=== PATIENT | female | born 1985 | race Caucasian/White ===

== ENCOUNTER 2022-03-09 11:07 | Inpatient (IN) | payer OTHER ==
[2022-03-09 12:17] VITALS: BMI 23.0
[2022-03-09] MEDS ORDERED: ACETAMINOPHEN 325 MG TABLET (FP) PO PRN ×2 (14:42)
[2022-03-09] MEDS ORDERED: NALOXONE HCL (KLOXXADO) 8 MG SPRAY NS PRN (14:42)
[2022-03-09] MEDS ORDERED: MAGNESIUM CITRATE 300 ML BOTTLE PO PRN (14:42)
[2022-03-09] MEDS ORDERED: BISMUTH SUBSALICYLATE 524 MG/30 ML PO PRN (14:42)
[2022-03-09] MEDS ORDERED: MAG HYDROX/AL HYDROX/SIMETH 30 ML UNIT-DOSE CUP PO PRN (14:42)
[2022-03-09] MEDS ORDERED: IBUPROFEN 400 MG TABLET (FP) PO PRN (14:42)
[2022-03-09] MEDS ORDERED: LOPERAMIDE HCL 2 MG CAPSULE PO PRN (14:42)
[2022-03-09] MEDS ORDERED: IBUPROFEN 600 MG TABLET (FP) PO PRN (14:42)
[2022-03-09] MEDS ORDERED: MAGNESIUM HYDROX 2400MG/30ML ORAL SUSPENSION 30 ML CUP PO PRN (14:42)
[2022-03-09] MEDS ORDERED: ONDANSETRON *ODT* 4 MG TABLET SL PRN (14:42)
[2022-03-09] MEDS ORDERED: BENZOCAINE/MENTHOL (CHLORASEPTIC ) LOZENGE MM PRN (14:42)
[2022-03-09] MEDS ORDERED: DICYCLOMINE HCL 10 MG CAPSULE PO PRN (14:42)
[2022-03-09] MEDS ORDERED: METHOCARBAMOL 500 MG TABLET PO PRN (14:42)
[2022-03-09] MEDS ORDERED: CALAMINE 8% TOPICAL LOTION 177 ML BOTTLE TP PRN (14:47)
[2022-03-09] MEDS: hydrOXYzine PAMOATE 25 MG CAPSULE (FP) PO SCH ×2 (17:41→22:35)
[2022-03-09] MEDS: PRENATAL VITAMINS W/ FOLIC ACID TABLET (FP) PO SCH (18:30)
[2022-03-09] MEDS: MELATONIN 5 MG TABLETS PO SCH (22:35)
[2022-03-09] MEDS: THIAMINE HCL 100 MG TABLET (FP) PO SCH (22:35)
[2022-03-10] MEDS: hydrOXYzine PAMOATE 25 MG CAPSULE (FP) PO SCH ×5 (06:14→22:58)
[2022-03-10] MEDS: NICOTINE POLACRILEX 2 MG GUM BUC PRN ×4 (06:23→22:18)
[2022-03-10] MEDS ORDERED: chlordiazePOXIDE HCL 25 MG CAPSULE PO PRN (10:24)
[2022-03-10] MEDS: chlordiazePOXIDE HCL 25 MG CAPSULE PO SCH ×3 (10:34→22:15)
[2022-03-10] MEDS: methaDONE HCL 40 MG DISPERSABLE TABLET PO SCH (10:34)
[2022-03-10] MEDS: PRENATAL VITAMINS W/ FOLIC ACID TABLET (FP) PO SCH (10:35)
[2022-03-10 12:28] LABS: HEMATOCRIT 38.3 % (32.4-45.2); HEMOGLOBIN 12.4 GM/dL (10.7-15.3); MCH 26.5 pg (25.7-33.7); MCHC 32.3 g/dl (32.0-36.0); MEAN CELL VOLUME 82.3 fl (80-96); MEAN PLT VOLUME 8.2 fl (7.5-11.1); PLATELET COUNT 434 10^3/uL (134-434); RBC 4.66 M/mm3 (3.60-5.2); RDW 14.2 % (11.6-15.6); WHITE BLOOD COUNT 8.8 K/mm3 (4.0-10.0)
[2022-03-10 12:54] LABS: ALBUMIN 3.2 g/dl (3.4-5.0)
[2022-03-10 12:57] LABS: CALCIUM 9.5 mg/dL (8.5-10.1); CREATININE 0.7 mg/dL (0.55-1.3)
[2022-03-10 12:59] LABS: BILIRUBIN,TOTAL 0.4 mg/dL (0.2-1)
[2022-03-10 13:02] LABS: TOT PROT 6.6 g/dl (6.4-8.2)
[2022-03-10] MEDS: NICOTINE 10 MG CARTRIDGE (INHALER) IH PRN (19:59)
[2022-03-10] MEDS: THIAMINE HCL 100 MG TABLET (FP) PO SCH (22:16)
[2022-03-10] MEDS: MELATONIN 5 MG TABLETS PO SCH (22:16)
[2022-03-11] MEDS: chlordiazePOXIDE HCL 10 MG CAPSULE PO SCH ×5 (07:13→22:46)
[2022-03-11] MEDS: methaDONE HCL 40 MG DISPERSABLE TABLET PO SCH (07:14)
[2022-03-11] MEDS: hydrOXYzine PAMOATE 25 MG CAPSULE (FP) PO SCH ×5 (07:14→22:45)
[2022-03-11] MEDS: NICOTINE 10 MG CARTRIDGE (INHALER) IH PRN ×2 (07:17→16:43)
[2022-03-11] MEDS: NICOTINE POLACRILEX 2 MG GUM BUC PRN ×2 (10:23→17:19)
[2022-03-11] MEDS: PRENATAL VITAMINS W/ FOLIC ACID TABLET (FP) PO SCH (10:23)
[2022-03-11 11:47] LABS: HIV INTERPRETATION NEGATIVE (NEGATIVE)
[2022-03-11 17:27] VITALS: RESP 18
[2022-03-11] MEDS: MELATONIN 5 MG TABLETS PO SCH (22:44)
[2022-03-11] MEDS: THIAMINE HCL 100 MG TABLET (FP) PO SCH (22:44)
[2022-03-12] MEDS ORDERED: chlordiazePOXIDE HCL 10 MG CAPSULE PO PRN
[2022-03-12] MEDS: NICOTINE 10 MG CARTRIDGE (INHALER) IH PRN (03:56)
[2022-03-12] MEDS ORDERED: chlordiazePOXIDE HCL 10 MG CAPSULE PO SCH (05:00)
[2022-03-12] MEDS: methaDONE HCL 40 MG DISPERSABLE TABLET PO SCH (07:32)
[2022-03-12] MEDS: hydrOXYzine PAMOATE 25 MG CAPSULE (FP) PO SCH (07:33)
[2022-03-12 08:54] VITALS: BP 107/68; PULSE 65; TEMP 97.9
[2022-03-13] MEDS ORDERED: chlordiazePOXIDE HCL 10 MG CAPSULE PO ONE (05:00)
== END 2022-03-12 09:55 | disposition home or self-care (01) | DRG 773 ==
LOC: YASAS 11:07 → UNDOADMIN 15:57 → Y3N 15:57
PROVIDERS: ADMIT Allergy & Immunology; ATTEND Surgery
PROC: HZ2ZZZZ Detoxification Services for Substance Abuse Treatment (ICD-10-PCS; principal; 2022-03-09)
DX: F11.23 Opioid dependence with withdrawal (principal); F10.230 Alcohol dependence with withdrawal, uncomplicated; F15.10 Other stimulant abuse, uncomplicated; F17.210 Nicotine dependence, cigarettes, uncomplicated; F31.9 Bipolar disorder, unspecified; F60.3 Borderline personality disorder; Z20.822 Contact with and (suspected) exposure to COVID-19; Z86.19 Personal history of other infectious and parasitic diseases; Z59.00 Homelessness unspecified; Z56.0 Unemployment, unspecified
CPT/HCPCS: 36415; 80053; 81025; 85027; 86780; 87389; C9803-CS; U0003; U0005

== ENCOUNTER 2022-04-29 10:20 | Inpatient (IN) | payer OTHER ==
[2022-04-29 11:28] VITALS: BMI 23.0
[2022-04-29] MEDS ORDERED: IBUPROFEN 600 MG TABLET (FP) PO PRN (12:11)
[2022-04-29] MEDS ORDERED: NALOXONE HCL (KLOXXADO) 8 MG SPRAY NS PRN (12:11)
[2022-04-29] MEDS ORDERED: DICYCLOMINE HCL 10 MG CAPSULE PO PRN (12:11)
[2022-04-29] MEDS ORDERED: LOPERAMIDE HCL 2 MG CAPSULE PO PRN (12:11)
[2022-04-29] MEDS ORDERED: MAGNESIUM CITRATE 300 ML BOTTLE PO PRN (12:11)
[2022-04-29] MEDS ORDERED: ONDANSETRON *ODT* 4 MG TABLET SL PRN (12:11)
[2022-04-29] MEDS ORDERED: MAG HYDROX/AL HYDROX/SIMETH 30 ML UNIT-DOSE CUP PO PRN (12:11)
[2022-04-29] MEDS ORDERED: BENZOCAINE/MENTHOL (CHLORASEPTIC ) LOZENGE MM PRN (12:11)
[2022-04-29] MEDS ORDERED: MAGNESIUM HYDROX 2400MG/30ML ORAL SUSPENSION 30 ML CUP PO PRN (12:11)
[2022-04-29] MEDS ORDERED: BISMUTH SUBSALICYLATE 524 MG/30 ML PO PRN (12:11)
[2022-04-29] MEDS ORDERED: IBUPROFEN 400 MG TABLET (FP) PO PRN (12:11)
[2022-04-29] MEDS ORDERED: NICOTINE POLACRILEX 2 MG GUM BUC PRN (12:11)
[2022-04-29] MEDS ORDERED: ACETAMINOPHEN 325 MG TABLET (FP) PO PRN ×2 (12:11)
[2022-04-29] MEDS: NICOTINE 14 MG/24 HOURS TOPICAL PATCH TD SCH (13:13)
[2022-04-29] MEDS: NICOTINE 10 MG CARTRIDGE (INHALER) IH PRN ×3 (13:14→22:26)
[2022-04-29] MEDS: PRENATAL VITAMINS W/ FOLIC ACID TABLET (FP) PO SCH (13:14)
[2022-04-29] MEDS: diazePAM 5 MG TABLET PO PRN (13:22)
[2022-04-29 15:24] LABS: HEMATOCRIT 34.5 % (32.4-45.2); HEMOGLOBIN 11.4 GM/dL (10.7-15.3); MCH 26.7 pg (25.7-33.7); MCHC 32.9 g/dl (32.0-36.0); MEAN PLT VOLUME 7.9 fl (7.5-11.1); PLATELET COUNT 446 10^3/uL (134-434); RBC 4.27 M/mm3 (3.60-5.2); RDW 14.7 % (11.6-15.6); WHITE BLOOD COUNT 8.5 K/mm3 (4.0-10.0)
[2022-04-29] MEDS: FLUoxetine HCL 10 MG CAPSULE PO SCH (15:33)
[2022-04-29 15:52] LABS: CALCIUM 9.1 mg/dL (8.5-10.1)
[2022-04-29 15:53] LABS: ALBUMIN 3.5 g/dl (3.4-5.0); BLOOD UREA NITROGEN 15.1 mg/dL (7-18)
[2022-04-29 15:56] LABS: BILIRUBIN,TOTAL 0.3 mg/dL (0.2-1); CREATININE 0.7 mg/dL (0.55-1.3)
[2022-04-29 15:58] LABS: TOT PROT 7.1 g/dl (6.4-8.2)
[2022-04-29 16:25] LABS: HIV INTERPRETATION NEGATIVE (NEGATIVE)
[2022-04-29] MEDS: diazePAM 5 MG TABLET PO SCH ×2 (17:57→22:27)
[2022-04-29] MEDS: hydrOXYzine PAMOATE 25 MG CAPSULE (FP) PO PRN ×2 (17:57→22:27)
[2022-04-29] MEDS: METHOCARBAMOL 500 MG TABLET PO PRN (17:58)
[2022-04-29] MEDS: MELATONIN 5 MG TABLETS PO SCH (22:27)
[2022-04-29] MEDS: THIAMINE HCL 100 MG TABLET (FP) PO SCH (22:27)
[2022-04-29] MEDS: ARIPiprazole 10 MG TABLET PO SCH (22:27)
[2022-04-30] MEDS: diazePAM 5 MG TABLET PO SCH ×4 (06:12→23:32)
[2022-04-30] MEDS: NICOTINE 10 MG CARTRIDGE (INHALER) IH PRN ×2 (06:13→17:31)
[2022-04-30] MEDS ORDERED: methaDONE HCL 10 MG TABLET PO ONE (10:00)
[2022-04-30] MEDS: FLUoxetine HCL 10 MG CAPSULE PO SCH (10:12)
[2022-04-30] MEDS: PRENATAL VITAMINS W/ FOLIC ACID TABLET (FP) PO SCH (10:12)
[2022-04-30] MEDS: NICOTINE 14 MG/24 HOURS TOPICAL PATCH TD SCH (10:14)
[2022-04-30] MEDS ORDERED: methaDONE 40 MG, methaDONE 20 MG PO ONE (10:15)
[2022-04-30] MEDS: METHOCARBAMOL 500 MG TABLET PO PRN (17:30)
[2022-04-30] MEDS: hydrOXYzine PAMOATE 25 MG CAPSULE (FP) PO PRN (17:30)
[2022-04-30] MEDS: MELATONIN 5 MG TABLETS PO SCH (23:31)
[2022-04-30] MEDS: ARIPiprazole 10 MG TABLET PO SCH (23:31)
[2022-04-30] MEDS: THIAMINE HCL 100 MG TABLET (FP) PO SCH (23:31)
[2022-05-01] MEDS: diazePAM 5 MG TABLET PO PRN ×3 (03:02→17:56)
[2022-05-01] MEDS: diazePAM 5 MG TABLET PO SCH ×3 (05:31→22:26)
[2022-05-01] MEDS: methaDONE 40 MG, methaDONE 20 MG PO SCH (05:31)
[2022-05-01] MEDS ORDERED: methaDONE HCL 10 MG TABLET PO SCH (06:00)
[2022-05-01] MEDS: FLUoxetine HCL 10 MG CAPSULE PO SCH (10:36)
[2022-05-01] MEDS: NICOTINE 14 MG/24 HOURS TOPICAL PATCH TD SCH (10:36)
[2022-05-01] MEDS: METHOCARBAMOL 500 MG TABLET PO PRN (10:36)
[2022-05-01] MEDS: PRENATAL VITAMINS W/ FOLIC ACID TABLET (FP) PO SCH (10:36)
[2022-05-01] MEDS: NICOTINE 10 MG CARTRIDGE (INHALER) IH PRN ×2 (13:55→22:28)
[2022-05-01] MEDS: THIAMINE HCL 100 MG TABLET (FP) PO SCH (22:26)
[2022-05-01] MEDS: ARIPiprazole 10 MG TABLET PO SCH (22:26)
[2022-05-01] MEDS: MELATONIN 5 MG TABLETS PO SCH (22:27)
[2022-05-02] MEDS: methaDONE 40 MG, methaDONE 20 MG PO SCH (05:12)
[2022-05-02] MEDS: NICOTINE 10 MG CARTRIDGE (INHALER) IH PRN ×2 (05:12→19:46)
[2022-05-02] MEDS: diazePAM 5 MG TABLET PO SCH ×2 (05:12→18:22)
[2022-05-02] MEDS: FLUoxetine HCL 10 MG CAPSULE PO SCH (10:33)
[2022-05-02] MEDS: NICOTINE 14 MG/24 HOURS TOPICAL PATCH TD SCH (10:35)
[2022-05-02] MEDS: PRENATAL VITAMINS W/ FOLIC ACID TABLET (FP) PO SCH (10:35)
[2022-05-02] MEDS: diazePAM 5 MG TABLET PO PRN (10:35)
[2022-05-02] MEDS: hydrOXYzine PAMOATE 25 MG CAPSULE (FP) PO PRN (19:45)
[2022-05-02] MEDS: METHOCARBAMOL 500 MG TABLET PO PRN (19:51)
[2022-05-02] MEDS: THIAMINE HCL 100 MG TABLET (FP) PO SCH (21:56)
[2022-05-02] MEDS: ARIPiprazole 10 MG TABLET PO SCH (21:56)
[2022-05-02] MEDS: MELATONIN 5 MG TABLETS PO SCH (21:56)
[2022-05-03] MEDS: METHOCARBAMOL 500 MG TABLET PO PRN (05:36)
[2022-05-03] MEDS: hydrOXYzine PAMOATE 25 MG CAPSULE (FP) PO PRN (05:36)
[2022-05-03] MEDS: methaDONE 40 MG, methaDONE 20 MG PO SCH (05:36)
[2022-05-03] MEDS: NICOTINE 10 MG CARTRIDGE (INHALER) IH PRN (05:41)
[2022-05-03] MEDS ORDERED: diazePAM 5 MG TABLET PO ONE (06:00)
[2022-05-03 07:14] VITALS: TEMP 97.1
[2022-05-03 07:16] VITALS: BP 109/70; PULSE 91; RESP 16
[2022-05-03] MEDS: PRENATAL VITAMINS W/ FOLIC ACID TABLET (FP) PO SCH (09:27)
[2022-05-03] MEDS: FLUoxetine HCL 10 MG CAPSULE PO SCH (09:27)
[2022-05-03] MEDS: NICOTINE 14 MG/24 HOURS TOPICAL PATCH TD SCH (09:27)
== END 2022-05-03 09:20 | disposition other institution (70) | DRG 773 ==
LOC: YASAS 10:20 → Y6N 12:25
PROVIDERS: ADMIT Allergy & Immunology; ATTEND Surgery
PROC: HZ2ZZZZ Detoxification Services for Substance Abuse Treatment (ICD-10-PCS; principal; 2022-04-29)
DX: F10.230 Alcohol dependence with withdrawal, uncomplicated (principal); F11.20 Opioid dependence, uncomplicated; F15.20 Other stimulant dependence, uncomplicated; F17.210 Nicotine dependence, cigarettes, uncomplicated; F31.9 Bipolar disorder, unspecified; F10.282 Alcohol dependence with alcohol-induced sleep disorder; F10.280 Alcohol dependence with alcohol-induced anxiety disorder; M16.11 Unilateral primary osteoarthritis, right hip; Z99.89 Dependence on other enabling machines and devices; Z86.19 Personal history of other infectious and parasitic diseases; Z59.00 Homelessness unspecified; Z56.0 Unemployment, unspecified
CPT/HCPCS: 36415; 71046-TC-FY; 80053; 81025; 85027; 86780; 87389; C9803-CS; U0003; U0005

== ENCOUNTER 2022-07-21 10:02 | Inpatient (IN) | payer OTHER ==
[2022-07-21 10:52] VITALS: BMI 25.1
[2022-07-21] MEDS ORDERED: IBUPROFEN 600 MG TABLET (FP) PO PRN (11:26)
[2022-07-21] MEDS ORDERED: BISMUTH SUBSALICYLATE 262 MG/15 ML BTL PO PRN (11:26)
[2022-07-21] MEDS ORDERED: IBUPROFEN 400 MG TABLET (FP) PO PRN (11:26)
[2022-07-21] MEDS ORDERED: MAG HYDROX/AL HYDROX/SIMETH 30 ML UNIT-DOSE CUP PO PRN (11:26)
[2022-07-21] MEDS ORDERED: ACETAMINOPHEN 325 MG TABLET (FP) PO PRN ×2 (11:26)
[2022-07-21] MEDS ORDERED: LOPERAMIDE HCL 2 MG CAPSULE PO PRN (11:26)
[2022-07-21] MEDS ORDERED: BENZOCAINE/MENTHOL (CHLORASEPTIC ) LOZENGE MM PRN (11:26)
[2022-07-21] MEDS ORDERED: METHOCARBAMOL 500 MG TABLET PO PRN (11:26)
[2022-07-21] MEDS ORDERED: MAGNESIUM HYDROX 2400MG/30ML ORAL SUSPENSION 30 ML CUP PO PRN (11:26)
[2022-07-21] MEDS ORDERED: NALOXONE HCL (KLOXXADO) 8 MG SPRAY NS PRN (11:26)
[2022-07-21] MEDS ORDERED: ONDANSETRON *ODT* 4 MG TABLET SL PRN (11:26)
[2022-07-21] MEDS ORDERED: hydrOXYzine PAMOATE 25 MG CAPSULE (FP) PO PRN (11:26)
[2022-07-21] MEDS ORDERED: POLYETHYLENE GLYCOL (HEALTHYLAX) 3350 17 GM PACKET PO PRN (11:26)
[2022-07-21] MEDS ORDERED: DICYCLOMINE HCL 10 MG CAPSULE PO PRN (11:26)
[2022-07-21] MEDS: NICOTINE 14 MG/24 HOURS TOPICAL PATCH TD SCH (12:15)
[2022-07-21] MEDS: PRENATAL VITAMINS W/ FOLIC ACID TABLET (FP) PO SCH (12:16)
[2022-07-21] MEDS ORDERED: NICOTINE 14 MG/24 HOURS TOPICAL PATCH TD ONE (12:18)
[2022-07-21] MEDS: chlordiazePOXIDE HCL 25 MG CAPSULE PO PRN (12:35)
[2022-07-21] MEDS: chlordiazePOXIDE HCL 25 MG CAPSULE PO SCH ×2 (17:37→22:34)
[2022-07-21] MEDS: NICOTINE 10 MG CARTRIDGE (INHALER) IH PRN (17:39)
[2022-07-21 18:42] LABS: HEMATOCRIT 35.3 % (32.4-45.2); HEMOGLOBIN 11.3 GM/dL (10.7-15.3); MCH 26.1 pg (25.7-33.7); MCHC 32.1 g/dl (32.0-36.0); MEAN CELL VOLUME 81.2 fl (80-96); MEAN PLT VOLUME 7.6 fl (7.5-11.1); PLATELET COUNT 406 10^3/uL (134-434); RBC 4.35 M/mm3 (3.60-5.2); RDW 15.1 % (11.6-15.6); WHITE BLOOD COUNT 9.8 K/mm3 (4.0-10.0)
[2022-07-21 18:46] LABS: ALBUMIN 3.7 g/dl (3.4-5.0)
[2022-07-21 18:48] LABS: CREATININE 0.9 mg/dL (0.55-1.3)
[2022-07-21 18:50] LABS: BILIRUBIN,TOTAL 0.2 mg/dL (0.2-1); TOT PROT 6.9 g/dl (6.4-8.2)
[2022-07-21] MEDS: MELATONIN 5 MG TABLETS PO SCH (22:33)
[2022-07-21] MEDS: THIAMINE HCL 100 MG TABLET (FP) PO SCH (22:34)
[2022-07-22] MEDS ORDERED: methaDONE HCL 10 MG TABLET PO SCH (06:00)
[2022-07-22] MEDS: methaDONE 40 MG, methaDONE 20 MG PO SCH (06:38)
[2022-07-22] MEDS: chlordiazePOXIDE HCL 25 MG CAPSULE PO SCH ×4 (06:39→22:02)
[2022-07-22] MEDS: NICOTINE 10 MG CARTRIDGE (INHALER) IH PRN ×3 (06:53→21:14)
[2022-07-22] MEDS: PRENATAL VITAMINS W/ FOLIC ACID TABLET (FP) PO SCH (10:31)
[2022-07-22] MEDS: NICOTINE 14 MG/24 HOURS TOPICAL PATCH TD SCH (10:31)
[2022-07-22 13:14] LABS: HIV INTERPRETATION NEGATIVE (NEGATIVE)
[2022-07-22] MEDS: LACTULOSE 20 GM/30 ML UDC (FOR ORAL USE ONLY) PO SCH ×3 (13:37→22:01)
[2022-07-22] MEDS: chlordiazePOXIDE HCL 25 MG CAPSULE PO PRN ×2 (18:01→22:05)
[2022-07-22] MEDS: THIAMINE HCL 100 MG TABLET (FP) PO SCH (22:01)
[2022-07-22] MEDS: MELATONIN 5 MG TABLETS PO SCH (22:01)
[2022-07-23] MEDS: chlordiazePOXIDE HCL 25 MG CAPSULE PO SCH
[2022-07-23] MEDS ORDERED: chlordiazePOXIDE HCL 25 MG CAPSULE PO SCH (05:00)
[2022-07-23] MEDS: methaDONE 40 MG, methaDONE 20 MG PO SCH (05:40)
[2022-07-23] MEDS: chlordiazePOXIDE HCL 10 MG CAPSULE PO SCH ×2 (05:40→10:32)
[2022-07-23 09:12] VITALS: TEMP 97.5
[2022-07-23] MEDS: PRENATAL VITAMINS W/ FOLIC ACID TABLET (FP) PO SCH (10:30)
[2022-07-23] MEDS: NICOTINE 14 MG/24 HOURS TOPICAL PATCH TD SCH (10:30)
[2022-07-23] MEDS: LACTULOSE 20 GM/30 ML UDC (FOR ORAL USE ONLY) PO SCH (10:31)
[2022-07-23 12:48] VITALS: BP 101/59; PULSE 72; RESP 18
[2022-07-24] MEDS ORDERED: chlordiazePOXIDE HCL 10 MG CAPSULE PO PRN
[2022-07-24] MEDS ORDERED: chlordiazePOXIDE 5 MG CAPSULE PO SCH (05:00)
[2022-07-24] MEDS ORDERED: chlordiazePOXIDE HCL 10 MG CAPSULE PO SCH (05:00)
[2022-07-25] MEDS ORDERED: chlordiazePOXIDE HCL 10 MG CAPSULE PO SCH ×2 (05:00)
[2022-07-26] MEDS ORDERED: chlordiazePOXIDE HCL 10 MG CAPSULE PO ONE (05:00)
[2022-07-26] MEDS ORDERED: chlordiazePOXIDE 5 MG CAPSULE PO ONE (06:00)
== END 2022-07-23 13:36 | disposition left against medical advice (07) | DRG 770 ==
LOC: YASAS 10:02 → Y6N 11:32
PROVIDERS: ADMIT Allergy & Immunology; ATTEND Family Medicine
PROC: HZ2ZZZZ Detoxification Services for Substance Abuse Treatment (ICD-10-PCS; principal; 2022-07-21)
DX: F10.230 Alcohol dependence with withdrawal, uncomplicated (principal); F11.20 Opioid dependence, uncomplicated; F15.20 Other stimulant dependence, uncomplicated; F12.10 Cannabis abuse, uncomplicated; F17.210 Nicotine dependence, cigarettes, uncomplicated; F31.9 Bipolar disorder, unspecified; F39 Unspecified mood [affective] disorder; M16.11 Unilateral primary osteoarthritis, right hip; B18.2 Chronic viral hepatitis C; F10.280 Alcohol dependence with alcohol-induced anxiety disorder; F10.282 Alcohol dependence with alcohol-induced sleep disorder; Z59.02 Unsheltered homelessness; Z99.89 Dependence on other enabling machines and devices
CPT/HCPCS: 36415; 80053; 82140; 83036; 85027; 86780; 87389; 87811; C9803-CS; U0003; U0005

== ENCOUNTER 2023-05-16 13:35 | Inpatient (IN) | payer BC ==
[2023-05-16 14:06] VITALS: BMI 21.2
[2023-05-16] MEDS ORDERED: BISMUTH SUBSALICYLATE 524 MG/30 ML PO PRN (17:01)
[2023-05-16] MEDS ORDERED: MAG HYDROX/AL HYDROX/SIMETH 30 ML UNIT-DOSE CUP PO PRN (17:01)
[2023-05-16] MEDS ORDERED: POLYETHYLENE GLYCOL (HEALTHYLAX) 3350 17 GM PACKET PO PRN (17:01)
[2023-05-16] MEDS ORDERED: BENZOCAINE/MENTHOL (CHLORASEPTIC ) LOZENGE MM PRN (17:01)
[2023-05-16] MEDS ORDERED: IBUPROFEN 400 MG TABLET (FP) PO PRN (17:01)
[2023-05-16] MEDS ORDERED: MAGNESIUM HYDROX 2400MG/30ML ORAL SUSPENSION 30 ML CUP PO PRN (17:01)
[2023-05-16] MEDS ORDERED: guaiFENesin 600 MG TABLET.ER (FP) PO PRN (17:01)
[2023-05-16] MEDS ORDERED: DICYCLOMINE HCL 10 MG CAPSULE PO PRN (17:01)
[2023-05-16] MEDS ORDERED: NALOXONE HCL (KLOXXADO) 8 MG SPRAY NS PRN (17:01)
[2023-05-16] MEDS ORDERED: NALOXONE HCL 0.4 MG/ML VIAL IM PRN (17:01)
[2023-05-16] MEDS ORDERED: chlordiazePOXIDE HCL 25 MG CAPSULE PO PRN (17:01)
[2023-05-16] MEDS ORDERED: ONDANSETRON *ODT* 4 MG TABLET SL PRN (17:01)
[2023-05-16] MEDS ORDERED: ACETAMINOPHEN 325 MG TABLET (FP) PO PRN (17:01)
[2023-05-16] MEDS ORDERED: BENZONATATE 200 MG CAPSULE PO PRN (17:01)
[2023-05-16] MEDS ORDERED: LOPERAMIDE HCL 2 MG CAPSULE PO PRN (17:01)
[2023-05-16] MEDS ORDERED: hydrOXYzine PAMOATE 25 MG CAPSULE (FP) PO PRN (17:01)
[2023-05-16] MEDS: METHOCARBAMOL 500 MG TABLET PO PRN (18:32)
[2023-05-16] MEDS: NICOTINE POLACRILEX 2 MG GUM BUC PRN ×2 (19:49→22:15)
[2023-05-16] MEDS: THIAMINE HCL 100 MG TABLET (FP) PO SCH (22:13)
[2023-05-16] MEDS: MELATONIN 5 MG TABLETS PO SCH (22:13)
[2023-05-16] MEDS: chlordiazePOXIDE HCL 25 MG CAPSULE PO SCH (22:13)
[2023-05-17] MEDS: chlordiazePOXIDE HCL 25 MG CAPSULE PO SCH ×4 (05:14→22:16)
[2023-05-17] MEDS: METHOCARBAMOL 500 MG TABLET PO PRN ×3 (05:16→22:17)
[2023-05-17] MEDS: NICOTINE POLACRILEX 2 MG GUM BUC PRN ×5 (05:18→22:19)
[2023-05-17] MEDS ORDERED: methaDONE HCL 10 MG TABLET PO SCH (08:30)
[2023-05-17] MEDS: methaDONE 40 MG, methaDONE 30 MG PO SCH (09:23)
[2023-05-17] MEDS: PRENATAL VITAMINS W/ FOLIC ACID TABLET (FP) PO SCH (09:23)
[2023-05-17] MEDS ORDERED: NICOTINE 21 MG/24 HOURS TOPICAL PATCH TD SCH (10:00)
[2023-05-17] MEDS: NICOTINE 14 MG/24 HOURS TOPICAL PATCH TD SCH (10:08)
[2023-05-17 10:55] LABS: HEMATOCRIT 39.1 % (32.4-45.2); HEMOGLOBIN 12.7 GM/dL (10.7-15.3); MCH 29.2 pg (25.7-33.7); MCHC 32.4 g/dl (32.0-36.0); MEAN CELL VOLUME 89.9 fl (80-96); PLATELET COUNT 193 10^3/uL (134-434); RBC 4.35 M/mm3 (3.60-5.2); RDW 14.9 % (11.6-15.6); WHITE BLOOD COUNT 5.4 K/mm3 (4.0-10.0)
[2023-05-17 11:00] LABS: CHLORIDE 100 mmol/L (98-107); POTASSIUM 3.5 mmol/L (3.5-5.1); SODIUM 140 mmol/L (136-145)
[2023-05-17 11:20] LABS: ALBUMIN 3.5 g/dl (3.4-5.0); ANION GAP 7 mmol/L (4-13); BLOOD UREA NITROGEN 13.7 mg/dL (7-18); CALCIUM 9.7 mg/dL (8.5-10.1); CO2 33 mmol/L (21-32); GLUCOSE,RANDOM 113 mg/dL (74-106)
[2023-05-17 11:23] LABS: SGOT/AST 79 U/L (15-37)
[2023-05-17 11:24] LABS: BILIRUBIN,TOTAL 1.5 mg/dL (0.2-1); CREATININE 0.7 mg/dL (0.55-1.3); SGPT/ALT 32 U/L (13-61)
[2023-05-17 11:25] LABS: TOT PROT 7.5 g/dl (6.4-8.2)
[2023-05-17 11:26] LABS: ALK PHOS 120 U/L (45-117)
[2023-05-17] MEDS: THIAMINE HCL 100 MG TABLET (FP) PO SCH (22:15)
[2023-05-17] MEDS: MELATONIN 5 MG TABLETS PO SCH (22:15)
[2023-05-18] MEDS: methaDONE 40 MG, methaDONE 30 MG PO SCH (05:37)
[2023-05-18] MEDS: chlordiazePOXIDE HCL 25 MG CAPSULE PO SCH ×4 (05:37→22:09)
[2023-05-18] MEDS: METHOCARBAMOL 500 MG TABLET PO PRN ×2 (05:37→17:45)
[2023-05-18] MEDS: NICOTINE POLACRILEX 2 MG GUM BUC PRN ×4 (05:38→22:10)
[2023-05-18] MEDS: NICOTINE 14 MG/24 HOURS TOPICAL PATCH TD SCH (10:16)
[2023-05-18] MEDS: PRENATAL VITAMINS W/ FOLIC ACID TABLET (FP) PO SCH (10:16)
[2023-05-18] MEDS: MELATONIN 5 MG TABLETS PO SCH (22:09)
[2023-05-18] MEDS: THIAMINE HCL 100 MG TABLET (FP) PO SCH (22:09)
[2023-05-19] MEDS ORDERED: chlordiazePOXIDE HCL 10 MG CAPSULE PO PRN
[2023-05-19] MEDS: IBUPROFEN 600 MG TABLET (FP) PO PRN ×2 (03:04→19:43)
[2023-05-19] MEDS: METHOCARBAMOL 500 MG TABLET PO PRN ×2 (03:04→17:25)
[2023-05-19] MEDS: chlordiazePOXIDE HCL 10 MG CAPSULE PO SCH ×4 (05:33→22:10)
[2023-05-19] MEDS: methaDONE 40 MG, methaDONE 30 MG PO SCH (05:33)
[2023-05-19] MEDS: NICOTINE POLACRILEX 2 MG GUM BUC PRN ×3 (05:35→22:12)
[2023-05-19] MEDS: NICOTINE 14 MG/24 HOURS TOPICAL PATCH TD SCH (10:05)
[2023-05-19] MEDS: PRENATAL VITAMINS W/ FOLIC ACID TABLET (FP) PO SCH (10:06)
[2023-05-19] MEDS: MELATONIN 5 MG TABLETS PO SCH (22:10)
[2023-05-19] MEDS: THIAMINE HCL 100 MG TABLET (FP) PO SCH (22:10)
[2023-05-20] MEDS: METHOCARBAMOL 500 MG TABLET PO PRN ×2 (00:17→05:46)
[2023-05-20] MEDS ORDERED: chlordiazePOXIDE HCL 10 MG CAPSULE PO SCH (05:00)
[2023-05-20] MEDS: methaDONE 40 MG, methaDONE 30 MG PO SCH (05:42)
[2023-05-20] MEDS: NICOTINE POLACRILEX 2 MG GUM BUC PRN (05:48)
[2023-05-20 08:48] VITALS: BP 113/79; PULSE 102; RESP 18; TEMP 98.1
[2023-05-20] MEDS: NICOTINE 14 MG/24 HOURS TOPICAL PATCH TD SCH (09:41)
[2023-05-20] MEDS: PRENATAL VITAMINS W/ FOLIC ACID TABLET (FP) PO SCH (09:41)
[2023-05-21] MEDS ORDERED: chlordiazePOXIDE HCL 10 MG CAPSULE PO ONE (05:00)
== END 2023-05-20 10:16 | disposition home or self-care (01) | DRG 773 ==
LOC: YASAS 13:35 → Y3N 18:10
PROVIDERS: ADMIT Allergy & Immunology; ATTEND Surgery
PROC: HZ2ZZZZ Detoxification Services for Substance Abuse Treatment (ICD-10-PCS; principal; 2023-05-16)
DX: F10.230 Alcohol dependence with withdrawal, uncomplicated (principal); F11.20 Opioid dependence, uncomplicated; F17.210 Nicotine dependence, cigarettes, uncomplicated; M16.31 Unilateral osteoarthritis resulting from hip dysplasia, right hip; Z99.89 Dependence on other enabling machines and devices; Z86.19 Personal history of other infectious and parasitic diseases
CPT/HCPCS: 36415; 71045-TC-FY; 80053; 80307; 81025; 85027; 86780; 87635; 93005; 93010